=== PATIENT | female | born 1975 | race Caucasian/White ===

== ENCOUNTER → 2017-10-21 10:18 | Outpatient (CLI) | payer BC, SELFPAY ==
--- NOTE | 2017-10-21 10:25 | MM_ITS ---
MM Dig screening mamm BI w/CAD CAD Screening ORDERING PHYSICIAN : Camilla Maguire MD PATIENT AGE: 41 years GENDER: Female COMPARISON: Previous mammograms: September, April 2015 right breast INDICATION: Routine screening. No hormones. No new complaints. Noncontributory family history. TECHNIQUE: Standard CC and MLO images were obtained. R2 CAD reviewed. FINDINGS: Low-density breast bilaterally with no dominant mass nor new suspicious calcification. RIGHT BREAST:Unchanged no new areas of concern. LEFT BREAST: Minimal nodularity at the retroareolar towards 6 o'clock position again noted and similar to previous study from 2015. Can be followed There are some small calcifications at the medial left breast but these are most likely skin calcifications and been stable since 2015. IMPRESSION: No new findings of significant concern Stable bilateral mammogram Follow follow-up one year BI-RADS Category: 2 Benign Finding(s) RECOMMENDED FOLLOW-UP: 1YR 1 YEAR FOLLOW-UP (A letter has been sent to the patient regarding results of the study.)
== END ==
PROVIDERS: PCP Nurse Practitioner; Visit Provider Obstetrics & Gynecology
DX: Z12.31 Encounter for screening mammogram for malignant neoplasm of breast (principal); N64.4 Mastodynia
CPT/HCPCS: 77067

== ENCOUNTER → 2017-10-24 07:35 | Outpatient (CLI) | payer BC, SELFPAY ==
--- NOTE | 2017-10-24 07:37 | US_ITS ---
US abdomen limited History:Right upper quadrant pain Ordering Physician:Camilla Maguire MD Patient Age: 41 years Comparison:None Findings: Pancreas:Unremarkable. No obvious mass or abnormal fluid collection. No ductal dilatation Liver:No focal liver lesions demonstrated. Homogeneous echogenicity. No intrahepatic biliary ductal dilatation evident Right Kidney:Unremarkable. Normal size and echogenicity. No hydronephrosis Gallbladder:No gallstones, gallbladder wall thickening, pericholecystic fluid, or biliary dilatation. Impression:Negative gallbladder/right upper quadrant ultrasound
[2017-10-24 08:56] LABS: Basophils % 0.3 % (0.1-2.0); Eosinophils # 0.4 K/mm3 (0.0-0.4); Eosinophils % 3.4 % (0.1-12.0); Hematocrit 46.6 % (37.0-47.0); Hemoglobin 14.8 g/dL (12.2-16.2); Lymphocytes # 3.1 K/mm3 (0.7-4.5); Lymphocytes % 28.4 K/mm3 (10-50); Mean Corpuscular HGB Conc 31.8 g/dL (31.8-35.4); Mean Corpuscular Hemoglobin 28.3 pg (27.0-31.2); Mean Platelet Volume 7.7 fl (7.4-10.4); Monocytes # 0.6 K/mm3 (0.1-1.0); Monocytes % 5.2 % (1.7-9.3); Neutrophils # 6.8 K/mm3 (1.8-7.8); Neutrophils % 62.6 % (37.0-80.0); Platelet Count 305 K/mm3 (142-424); Red Blood Count 5.24 M/mm3 (4.20-5.40); Red Cell Distribution Width 13.4 % (11.5-17.5); White Blood Count 10.9 K/mm3 (4.8-10.8)
[2017-10-24 12:33] LABS: Alanine Aminotransferase 25 U/L (12-78); Albumin Level 3.5 gm/dL (3.4-5.0); Albumin/Globulin Ratio 1.1 (1.1-1.8); Alkaline Phosphatase 76 U/L (46-116); Anion Gap 14.3 mEq/L (5-15); Aspartate Amino Transferase 15 U/L (15-37); Bilirubin,Total 0.2 mg/dL (0.2-1.0); Blood Urea Nitrogen 11 mg/dL (7-18); Calcium 8.4 mg/dL (8.5-10.1); Carbon Dioxide 27 mmol/L (21.0-32.0); Chloride 105 mmol/L (98-107); Chol/HDL Ratio 4.4 (1-3.5); Cholesterol 197 mg/dL (140-200); Estimated Glomerular Filt Rate 91 ml/min (>60); GFR (African American) 111 ML/MIN (>60); Globulin 3.3 gm/dl (1.3-3.2); Glucose 98 mg/dL (74-106); HDL Cholesterol 45 mg/dL (29-89); LDL Cholesterol 117 mg/dL (0-130); Potassium 4.3 mmoL/L (3.5-5.1); Sodium 142 mmol/L (136-145); Total Protein,Serum 6.8 gm/dL (6.4-8.2); Triglycerides 175 mg/dL (30-200); VLDL Cholesterol 35 mg/dL (0-40)
== END ==
PROVIDERS: PCP Nurse Practitioner; Visit Provider Obstetrics & Gynecology
DX: R10.11 Right upper quadrant pain (principal)
CPT/HCPCS: 36415; 76705; 80053; 80061; 85025

== ENCOUNTER → 2018-12-08 16:21 | Outpatient (CLI) | payer BC, SELFPAY ==
--- NOTE | 2018-12-08 16:24 | MM_ITS ---
MM Dig screening mamm BI w/CAD ORDERING PHYSICIAN : Camilla Maguire MD PATIENT AGE: 43 years GENDER: Female COMPARISON: September 20172016, October bilateral mammogram studies, INDICATION: I..: Routine Screening Mammogram. No new complaints patient has taken female hormones over the past year family history unremarkable TECHNIQUE: Standard CC and MLO images were obtained. R2 CAD reviewed. FINDINGS: Low-density breast fatty replacement with only Minimal residual fibroglandular elements retroareolar region . No dominant or suspicious mass or nodule. No suspicious calcifications. The some scattered small punctate calcifications medial left breast likely benign dermal calcifications. IMPRESSION: Stable mammogram no new areas of significant concern. Bilateral follow-up in one year BI-RADS Category: 1 Negative RECOMMENDED FOLLOW-UP: 1YR 1 YEAR FOLLOW-UP (A letter has been sent to the patient regarding results of the study.)
== END ==
PROVIDERS: PCP Nurse Practitioner Family; Visit Provider Obstetrics & Gynecology
DX: Z12.31 Encounter for screening mammogram for malignant neoplasm of breast (principal)
CPT/HCPCS: 77067

== ENCOUNTER → 2020-02-23 17:21 | Outpatient (CLI) | payer BC, SELFPAY ==
--- NOTE | 2020-02-23 17:22 | MM_ITS ---
PROCEDURE: MM DIG SCREENING MAMM BI W/CAD Digital Breast Tomosynthesis Included CLINICAL INDICATION: Routine Screening Mammogram Or family history of breast cancer. COMPARISON: MG DMDXUR DIG MAMM-DX UNI-RT from 05/13/2015 MG DMSB DIG MAMM-SCREEN JEAN W/CAD from 10/08/2016 MG SCBI MM Dig screening mamm BI w/CAD from 10/21/2017 TECHNIQUE: Standard CC and MLO images and 3D Tomosynthesis was obtained. R2 CAD reviewed. FINDINGS: Breasts are composed primarily of fat with minimal scattered fibroglandular densities throughout each breast. There are couple of benign-appearing microcalcifications in each breast. There are mole markers near the axillary tail of each breast. There is a possible new density seen just deep to the nipple left breast best demonstrated on yumi images. This probably is a small cyst but recommend the patient return for spot compression views and ultrasound for additional evaluation. IMPRESSION: Fatty type breast parenchyma with new density left breast BI-RAD Category: 0 Need Additional Imaging Evaluation FOLLOW-UP: IMM Immediate Follow-up Recommended (A letter has been sent to the patient regarding results of the study.) Dictated by: Dr. Tanner Faustin MD 02/24/2020 14:13 Dr. Tanner Faustin MD in [place] 02/24/2020 14:13
== END ==
PROVIDERS: PCP Nurse Practitioner Family; Visit Provider Obstetrics & Gynecology
DX: Z12.31 Encounter for screening mammogram for malignant neoplasm of breast (principal)
CPT/HCPCS: 77063; 77067

== ENCOUNTER → 2020-03-09 13:56 | Outpatient (CLI) | payer BC, SELFPAY ==
--- NOTE | 2020-03-09 | US_ITS ---
PROCEDURE: US BREAST LT COMPLETE CLINICAL INDICATION: area seen on mamm COMPARISON: No exams were available for comparison FINDINGS: Rather homogeneous echogenicity in the targeted area of the outer left breast. There is a small 1.25 cm echogenic lesion at 3 o'clock position outer breast which could be a small lipoma. No definite lesion was seen at this location on the mammogram images performed the same date. There is no cystic or solid lesions seen at the site of the possible new nodular density on the mammogram. There are couple normal appearing nodes in the axilla. IMPRESSION: Essentially negative targeted ultrasound, see mammogram report for follow-up recommendations Dictated by: Dr. Tanner Faustin MD 03/11/2020 12:35 Dr. Tanner Faustin MD in [place] 03/11/2020 12:35
--- NOTE | 2020-03-09 13:56 | MM_ITS ---
PROCEDURE: MM DIG MAMM DX UNILAT LT CAD Digital Breast Tomosynthesis Included CLINICAL INDICATION: abnormal mamm COMPARISON: MG DMSB DIG MAMM-SCREEN JEAN W/CAD from 10/08/2016 MG SCBI MM Dig screening mamm BI w/CAD from 10/21/2017 MG MM DIG SCREENING MAMM BI W/CAD from 02/23/2020 US US BREAST LT COMPLETE from 03/09/2020 TECHNIQUE: Standard CC and MLO images and 3D Tomosynthesis was obtained. R2 CAD reviewed. FINDINGS: The small possible cystic lesions seen on recent mammogram appears to compress out on the MLO view but is still seen on the spot CC view. Ultrasound performed the same date showed no abnormal cystic or solid lesion at this location. There is a small hyperechoic nodule at the 3 o'clock position measuring approximately 1.2 cm with no definite mammogram correlation noted. IMPRESSION: No definite suspicious lesion seen on either the the problem solving views or ultrasound and consider follow-up left mammogram and ultrasound in 6 months to evaluate for interval stability BI-RAD Category: 3 Probably Benign Finding Short Term Follow-up FOLLOW-UP: 6M 6Month Follow-up (A letter has been sent to the patient regarding results of the study.) Dictated by: Dr. Tanner Faustin MD 03/11/2020 12:28 Dr. Tanner Faustin MD in [place] 03/11/2020 12:28
== END ==
PROVIDERS: PCP Nurse Practitioner Family; Visit Provider Obstetrics & Gynecology
DX: R92.8 Other abnormal and inconclusive findings on diagnostic imaging of breast (principal)
CPT/HCPCS: 76641; 77061; 77065; G0279

== ENCOUNTER → 2020-11-25 14:43 | Outpatient (CLI) | payer BC, SELFPAY ==
--- NOTE | 2020-11-25 14:43 | US_ITS ---
PROCEDURE: MM DIG MAMM DX UNILAT LT CAD Digital Breast Tomosynthesis Included CLINICAL INDICATION: abnormal mammogram COMPARISON: MG SCBI MM Dig screening mamm BI w/CAD from 10/21/2017 MG MM DIG SCREENING MAMM BI W/CAD from 02/23/2020 MG MM DIG MAMM DX UNILAT LT CAD from 03/09/2020 US US BREAST LT COMPLETE from 03/09/2020 US US BREAST LT COMPLETE from 11/25/2020 TECHNIQUE: Standard CC and MLO images and 3D Tomosynthesis was obtained. R2 CAD reviewed. FINDINGS: Average fibroglandular tissue. No change in the 6 mm benign-appearing nodule in the central portion of the left breast best seen on the CC view. Benign-appearing. No new abnormalities apparent. No suspicious appearing mass, suspicious appearing microcalcification, architectural distortion, or skin thickening. Left breast ultrasound: No suspicious nodules. No cyst apparent. Hyperechoic area once again noted at 3 o'clock and may be due to small lipoma. IMPRESSION: Benign findings. Recommend return to screening bilateral 02/2021 BI-RAD Category: 2 Benign Finding FOLLOW-UP: 3M 3 Month Follow-up screening exam bilateral (A letter has been sent to the patient regarding results of the study.) Dictated by: Trevor Carlos MD 12/02/2020 17:57 Trevor Carlos MD in [place] 12/02/2020 17:57
== END ==
PROVIDERS: PCP Nurse Practitioner Family; Visit Provider Obstetrics & Gynecology
DX: R92.8 Other abnormal and inconclusive findings on diagnostic imaging of breast (principal)
CPT/HCPCS: 76641; 77061; 77065; G0279

== ENCOUNTER → 2021-05-01 14:38 | Outpatient (CLI) | payer BC, SELFPAY | PROVIDERS: Visit Provider Nurse Practitioner | DX: U07.1 COVID-19 (principal) | CPT/HCPCS: C9803; U0003; U0005 ==

== ENCOUNTER → 2021-05-12 16:07 | Outpatient (CLI) | payer BC, SELFPAY ==
--- NOTE | 2021-05-12 16:08 | MM_ITS ---
PROCEDURE INFORMATION: Exam: MG Bilateral Screening 3D Mammography Exam date and time: 05/12/2021 4:08 PM Age: 45 years old Clinical indication: Encounter for screening mammogram for malignant neoplasm of breast; Additional info: Screen TECHNIQUE: Imaging protocol: Screening tomosynthesis and 2D mammography including computer-aided detection (CAD) when performed. COMPARISON: 1. MG MM DIG MAMM DX UNILAT LT CAD 11/25/2020 2:50 PM 2. MG MM DIG MAMM DX UNILAT LT CAD 03/09/2020 2:09 PM 3. MG MM DIG SCREENING MAMM BI W/CAD 02/23/2020 5:23 PM FINDINGS: MAMMOGRAPHY: Breast composition: There are scattered areas of fibroglandular density. Mass: No suspicious masses. Architectural distortion: No suspicious distortion. Calcifications: No suspicious calcifications. Asymmetric density: None. Skin thickening: None. Axillary adenopathy: None. IMPRESSION: No mammographic evidence of malignancy. Annual screening is recommended unless otherwise clinically indicated. ASSESSMENT: BI-RADS Category 1: Negative
== END ==
PROVIDERS: PCP Family Medicine; Visit Provider Obstetrics & Gynecology
DX: Z12.31 Encounter for screening mammogram for malignant neoplasm of breast (principal)
CPT/HCPCS: 77063; 77067

== ENCOUNTER → 2021-07-31 13:15 | Outpatient (CLI) | payer BC, SELFPAY | PROVIDERS: PCP Family Medicine; Visit Provider Family Medicine | DX: G47.33 Obstructive sleep apnea (adult) (pediatric) (principal) | CPT/HCPCS: G0399 ==

== ENCOUNTER → 2021-08-22 16:53 | Outpatient (CLI) | payer BC, SELFPAY ==
--- NOTE | 2021-08-28 11:19 | HMH.SLMBS2 ---
Speech & Language Evaluation Speech/Language Mod Barium Swallow Start: 08/28/21 11:14 Freq: once Status: Complete Protocol: Document 08/28/21 11:14 KATHRYN (Rec: 08/28/21 11:19 KATHRYN [id number]) General Information General Current Food Consistancy Regular,Thin Liquids Dentition Good Dentition Oxygen Status Room Air Facial Symmetry Symmetrical Patient Orientation Person,Place,Time,Situation Ability to Follow Directions Excellent Communication Ability No Impairment MBS Recommendations Diet Dietary Recommendations Regular,Thin Liquids Treatment/Strategies Strategy/Precaution Recommend Sitting Upright (90 deg),Small Bites and Sips,Alternate Liquids/Solids Mod Barium Swallow Impressions Summary and Impressions Oral Phase Impression No Impairment (WFL) Oral Phase Summary Ms. Hall was given the following consistencies: thins via straw and open cup, pudding, mechanical soft, regular, and pill with thin wash. No oral phase impairments noted. Pharyngeal Phase Impression Minimal Impairment Pharyngeal Phase Summary Flash penetration with large volume of thin liquids noted during evaluation however aspiration was not noted. Speech/Language MBS Assessment/Goals/Plan Assessment Date of Evaluation: 08/28/21 Evaluation Type Initial Certification Assessment/Problems Dysphagia Does Patient Qualify for Service No Qualify/Failure Comment No overt signs or symptoms of aspiration were noted during evaluation. Recommendations PHYSICIAN CERTIFICATION: The specified therapy services are required, authorized, and reviewed every 30 days. SL Swallow Guidelines Standard Aspiration Prec. Dysphagia Swallow Precautions/Strategies Sitting Upright (90 deg),Small Bites and Sips,Alternate Liquids/Solids Plan Pt/Guardian verbally ack understanding Yes of dx/prognosis/goals G -code Required No Mod Barium Swallow Setup Exam Setup Radiologist Jose Langford Level of Consciousness Awake,Alert,Appropriate Position (degrees) 90 Mod Barium Swallow-Lat View Textures Lateral View Food Presentation Thin Liquid via Cup,Thin Liquid via Straw,Pureed Food- Thick,Mech. Soft Food- Regular ,Barium Tablet,Regular Food,
== END ==
LOC: RAD 16:54
PROVIDERS: Visit Provider Physician Assistant
DX: R06.00 Dyspnea, unspecified (principal); I49.9 Cardiac arrhythmia, unspecified; G47.33 Obstructive sleep apnea (adult) (pediatric); Z72.0 Tobacco use
CPT/HCPCS: 71045; 92611; 93225

== ENCOUNTER → 2021-08-28 10:12 | Outpatient (CLI) | payer BC, SELFPAY ==
--- NOTE | 2021-08-22 15:43 | XR_ITS ---
FINAL REPORT CLINICAL HISTORY: tobacco user FINDINGS: SINGLE VIEW CHEST. The heart is normal in size. The mediastinum is unremarkable. The lungs are clear. There is no pneumothorax. IMPRESSION: No acute process. Reviewed, Interpreted and Dictated by Go Hernandes MD Transcribed by Autumn Mixon Authenticated by Go Hernandes MD on 08/22/2021 04:54:50 PM [facility]
--- NOTE | 2021-08-28 10:13 | CA_ITS ---
APPROVED REPORT EXAM: Comprehensive 2D, Doppler, and color-flow Echocardiogram Instructor Programmable Controllers: Lynne Stanton CRT Ht: 5 ft 6 in Wt: 296lbs BSA: 2.36 BP: 175/107 mmHg Indications: Chest Pain, Shortness of Breath, DAYA Arrhythmia 2D Dimensions LVOT 1.72 cm (M/F) 1.5-2.5 LA Volume 35.70 mL LA Volume Index 15.10 mL/m2 (M/F) 16-34 M-Mode Dimensions RVDd 2.44 cm (0.9-2.6) LA Diam 3.29 cm (1.9-4.0) LVDd 4.10 cm (3.5-5.7) Ao Diam 3.33 cm (2.0-3.7) LVDs 2.64 cm (3.5-5.7) IVSd 2.01 cm (0.6-1.1) PWd 0.69 cm (0.6-1.1) EF (Teich) 65.50% FS 35.60% EDV (Teich) 74.20 mL TAPSE 2.59 (<1.7) ESV (Teich) 25.60 mL LV Diastology E Decel Time 267.00 (160-240 msec) E/A Ratio 0.97 LAT E' 12.40 (<10 cm/sec) LAT A' 10.30 cm/s E/LAT E' Ratio 5.32 (>14) Aortic Valve AO Peak GR. 6.80 mmHg Mitral Valve MV A Velocity 68.00 (40-130 cm/s) E/A Ratio 0.97 MV Decel. Time 267.00 (160-240 ms) Pulmonary Valve PV Peak Velocity 96.00 (50-150 cm/s) Tricuspid Valve TR P. Velocity 232.00 cm/s RAP Estimate 10.00 mmHg RVSP 31.50 mmHg Left Ventricle Left atrium is normal size, left ventricle is normal size, there is mild concentric left ventricular hypertrophy, estimated ejection fraction 55% with no regional wall motion abnormality, diastolic parameters are within normal range. Right Ventricle Right atrium and right ventricle are normal size and contractility. Aortic Valve Aortic valve is grossly normal there is no aortic stenosis or aortic insufficiency. Mitral Valve Mitral valve grossly normal, there is trace mitral regurgitation. Tricuspid Valve Tricuspid valve grossly normal, there is trace tricuspid regurgitation, tricuspid regurgitation jet velocity is inadequate for calculation of the right ventricular systolic pressure. Pulmonic Valve Pulmonic valve is poorly visualized. Great Vessels Aortic root is normal size. Inferior vena cava is normal size with normal inspiratory collapse. Pericardium No significant pericardial effusion noted. Conclusion 1. Normal left ventricular size, preserved left ventricular systolic function, visually estimated ejection fraction 55% with no regional wall motion abnormality, diastolic parameters are within normal range. 2. Trace mitral and tricuspid regurgitation. 3. No significant pericardial effusion noted. 4. Inferior vena cava normal size with normal inspiratory collapse. Electronically signed by : Alex Fletcher MD 08/28/2021 12:46:35
--- NOTE | 2021-08-28 10:51 | FL_ITS ---
FINAL REPORT CLINICAL HISTORY: . FINDINGS: MODIFIED BARIUM SWALLOW HISTORY: Dysphagia. FINDINGS: Fluoroscopy was provided for the speech pathologist to evaluate the swallowing mechanism. The patient was given several different consistencies of barium while the swallow was visualized fluoroscopically. The report of the speech pathologist should be consulted prior to making dietary decisions. IMPRESSION: Modified barium swallow under fluoroscopic guidance. Please see speech pathologist's report for further details and dietary recommendations. Fluoroscopy time was 1 minute 8 seconds. A total of 13 cine runs were saved. Reviewed, Interpreted and Dictated by Jose Langford III, MD Transcribed by Génesis Jones PA-C Authenticated by Jose Langford III, MD on 08/30/2021 09:49:15 AM [facility]
== END ==
LOC: RAD 08-22 16:22 → RT 10:13
PROVIDERS: PCP Family Medicine; Visit Provider Physician Assistant
DX: R06.00 Dyspnea, unspecified (principal); I49.9 Cardiac arrhythmia, unspecified; R13.10 Dysphagia, unspecified; G47.33 Obstructive sleep apnea (adult) (pediatric); Z72.0 Tobacco use
CPT/HCPCS: 70371; 71045; 93225; 93306

== ENCOUNTER → 2021-10-04 12:46 | Outpatient (CLI) | payer BC, SELFPAY ==
[2021-10-04 14:43] LABS: Ferritin 23.2 ng/ml (6.24-137)
== END ==
PROVIDERS: PCP Family Medicine; Visit Provider Nurse Practitioner Family
DX: E83.10 Disorder of iron metabolism, unspecified (principal); R49.0 Dysphonia; E66.01 Morbid (severe) obesity due to excess calories; Z68.42 Body mass index [BMI] 45.0-49.9, adult
CPT/HCPCS: 36415; 82728; 84443

== ENCOUNTER → 2022-11-20 10:25 | Outpatient (CLI) | payer BC, SELFPAY ==
--- NOTE | 2022-11-20 10:26 | MM_ITS ---
PROCEDURE INFORMATION: Exam: MG Bilateral Screening 3D Mammography Exam date and time: 11/20/2022 10:26 AM Age: 47 years old Clinical indication: Screening. No family history of breast cancer. TECHNIQUE: Imaging protocol: Bilateral Screening tomosynthesis and 2D mammography including computer-aided detection (CAD) when performed. COMPARISON: 1. MG MM DIG SCREENING MAMM BI W/CAD 05/12/2021 4:08 PM 2. MG MM DIG MAMM DX UNILAT LT CAD 11/25/2020 2:50 PM 3. MG MM DIG MAMM DX UNILAT LT CAD 03/09/2020 2:09 PM 4. MG MM DIG SCREENING MAMM BI W/CAD 02/23/2020 5:23 PM FINDINGS: MAMMOGRAPHY: Breast composition: There are scattered areas of fibroglandular density. Mass: None. Architectural distortion: None. Calcifications: No suspicious calcifications. Asymmetric density: None. Skin thickening: None. Axillary adenopathy: None. IMPRESSION: No mammographic evidence of malignancy. Annual screening is recommended unless otherwise clinically indicated. ASSESSMENT: BI-RADS Category 1: Negative
== END ==
PROVIDERS: PCP Family Medicine; Visit Provider Nurse Practitioner Obstetrics & Gynecology
DX: Z12.31 Encounter for screening mammogram for malignant neoplasm of breast (principal)
CPT/HCPCS: 77063; 77067

== ENCOUNTER → 2022-12-08 10:02 | Outpatient (CLI) | payer BC, SELFPAY ==
[2022-12-08 10:34] LABS: Basophils % 0.3 % (0.1-2.0); Eosinophils # 0.2 K/mm3 (0.0-0.4); Eosinophils % 2.2 % (0.1-12.0); Hematocrit 45.4 % (37.0-47.0); Hemoglobin 14.2 g/dL (12.2-16.2); Lymphocytes # 2.1 K/mm3 (0.7-4.5); Lymphocytes % 23.6 % (10-50); Mean Corpuscular HGB Conc 31.2 g/dL (31.8-35.4); Mean Corpuscular Hemoglobin 28.1 pg (27.0-31.2); Mean Corpuscular Volume 89.9 fl (81-99); Mean Platelet Volume 8.2 fl (7.4-10.4); Monocytes # 0.5 K/mm3 (0.1-1.0); Monocytes % 5.1 % (1.7-9.3); Neutrophils # 6.1 K/mm3 (1.8-7.8); Neutrophils % 68.8 % (37.0-80.0); Platelet Count 261 K/mm3 (142-424); Red Blood Count 5.05 M/mm3 (4.20-5.40); Red Cell Distribution Width 14.4 % (11.5-17.5); White Blood Count 8.9 K/mm3 (4.8-10.8)
[2022-12-08 10:56] LABS: Alanine Aminotransferase 24 U/L (12-78); Albumin Level 3.8 g/dl (3.5-5.0); Albumin/Globulin Ratio 1.4 (1.1-1.8); Alkaline Phosphatase 92 U/L (38-126); Anion Gap 9.7 mEq/L (5-15); Aspartate Amino Transferase 25 U/L (14-36); Bilirubin,Total 0.2 mg/dl (0.2-1.3); Blood Urea Nitrogen 9 mg/dl (7-17); Calcium 8.5 mg/dl (8.4-10.2); Carbon Dioxide 30 mmol/L (22.0-30.0); Chloride 106 mmol/L (98-107); Chol/HDL Ratio 3.8 (1-3.5); Cholesterol 173 mg/dl (140-200); Estimated Glomerular Filt Rate 131 ml/min (>60); GFR (African American) 159 ML/MIN (>60); Globulin 2.8 g/dL (1.3-3.2); Glucose 99 mg/dl (74-100); HDL Cholesterol 45 mg/dl (40-60); Potassium 4.7 mmoL/L (3.5-5.1); Sodium 141 mmol/L (136-145); Total Protein,Serum 6.6 g/dl (6.3-8.2); Triglycerides 161 mg/dl (30-150); VLDL Cholesterol 32 mg/dL (0-40)
[2022-12-08 11:08] LABS: Direct LDL Cholesterol 97.64 mg/dL (100-129)
[2022-12-08 11:13] LABS: Free Thyroxine Index 3.1 ug/dL (5.93-13.13); T4 (Thyroxine) 9.4 ug/dl (5.53-11.0); Triiodothryronine (T3) Uptake 33 % (23.5-40.5)
[2022-12-08 11:26] LABS: Thyroid Stimulating Hormone 2.38 uIU/mL (0.465-4.68)
== END ==
PROVIDERS: PCP Family Medicine; Visit Provider Nurse Practitioner Obstetrics & Gynecology
DX: Z01.419 Encounter for gynecological examination (general) (routine) without abnormal findings (principal)
CPT/HCPCS: 36415; 80053; 80061; 84436; 84443; 84479; 85025

== ENCOUNTER 2024-04-20 14:23 | Outpatient (CLI) | payer BC, SELFPAY ==
--- NOTE | 2024-04-20 14:23 | MM_ITS ---
PROCEDURE INFORMATION: Exam: MG Bilateral Screening 3D Mammography Exam date and time: 04/20/2024 2:15 PM Age: 48 years old Clinical indication: Screening exam. TECHNIQUE: Imaging protocol: Bilateral Screening tomosynthesis and 2D mammography including computer-aided detection (CAD) when performed. COMPARISON: 1. MG MM DIG SCREENING MAMM BI W/CAD 11/20/2022 10:26 AM 2. MG MM DIG SCREENING MAMM BI W/CAD 05/12/2021 4:08 PM FINDINGS: MAMMOGRAPHY: Breast composition: There are scattered areas of fibroglandular density. Mass: No suspicious masses. Architectural distortion: None. Calcifications: No suspicious calcifications. Asymmetric density: None. Skin thickening: None. Axillary adenopathy: None. IMPRESSION: No mammographic evidence of malignancy. Annual screening is recommended unless otherwise clinically indicated. ASSESSMENT: BI-RADS Category 1: Negative.
== END 2024-04-20 23:59 | disposition home or self-care (01) ==
LOC: RAD 14:23
PROVIDERS: PCP Family Medicine; Visit Provider Nurse Practitioner Obstetrics & Gynecology
DX: Z12.31 Encounter for screening mammogram for malignant neoplasm of breast (principal)
CPT/HCPCS: 77063; 77067